=== PATIENT | male | born 1950 | race Asian ===

== ENCOUNTER 2019-09-05 09:00 | Inpatient (IN) | payer OTHER ==
[~2019-09-05] VITALS: Ht 175.3 cm; Wt 86.2 kg
[2019-09-05 10:31] VITALS: BP 134/80
[2019-09-05 10:37] LABS: APPEARANCE,URINE Clear (CLEAR); BASOPHILS % (AUTO) 0.7 % (0.0-5.0); BILIRUBIN,URINE Negative (NEGATIVE); COLOR,URINE Yellow (YELLOW); EOSINOPHILS % (AUTO) 5.1 % (0.0-8.0); GLUCOSE, URINE (UA) Negative (NEGATIVE); HEMATOCRIT 43.1 % (42-54); KETONES,URINE Negative (NEGATIVE); LEUKOCYTE ESTERASE ,URINE Negative (NEGATIVE); LYMPHOCYTES % (AUTO) 29.1 % (21.0-51.0); MEAN CORPUSCULAR HEMOGLOBIN 29.3 pg (27.0-33.0); MEAN CORPUSCULAR HGB CONC 33.7 g/dL (32.0-36.0); MEAN CORPUSCULAR VOLUME 87.1 fL (79-99); MONOCYTES % (AUTO) 7.9 % (3.0-13.0); NEUTROPHILS % (AUTO) 57.2 % (40.0-77.0); NITRATE,URINE Negative (NEGATIVE); OCCULT BLOOD,URINE Negative (NEGATIVE); PLATELET COUNT (AUTO) 206 K/uL (130-400); PROTEIN,URINE Negative (NEGATIVE); RED BLOOD CELL COUNT(AUTO) 4.95 MIL/uL (4.50-6.20); RED CELL DISTRIBUTION WIDTH 13.7 % (11.0-15.5); WHITE BLOOD COUNT (AUTO) 5.5 K/uL (4.8-10.8)
[2019-09-05] MEDS ORDERED: FLUT1AER IH (10:41)
[2019-09-05 10:45] LABS: POTASSIUM 3.8 mmol/L (3.5-5.1)
[2019-09-05 10:48] LABS: INR 0.95 (0.85-1.15); PARTIAL THROMBOPLASTIN TIME 28.4 SEC (26.3-35.5)
[2019-09-07] VITALS (23 sets, daily range): BP systolic 111–152; BP diastolic 50–94
[2019-09-07] MEDS ORDERED: SODIUM CHLORIDE 0.9% 500ML 500 ML IV SCH (05:00)
[2019-09-07] MEDS ORDERED: SODIUM CHLORIDE 0.9% 1000ML 1,000 ML IV ONE (06:08)
[2019-09-07] MEDS ORDERED: IODIXANOL 320 MG/ML 100 ML VIAL ONE (06:46)
[2019-09-07] MEDS ORDERED: CEFAZOLIN SODIUM 1 GM VIAL ONE (06:46)
[2019-09-07] MEDS ORDERED: HEPARIN SODIUM 1000UNIT/ML 10ML VIAL ONE ×2 (06:46→08:28)
[2019-09-07] MEDS ORDERED: LIDOCAINE PF 2% 5ML ABBOJECT ONE (07:12)
[2019-09-07] MEDS ORDERED: PROPOFOL 10 MG/ML 20ML VIAL IV ONE (07:13)
[2019-09-07] MEDS ORDERED: ROCURONIUM BROMIDE 10MG/1ML 5ML VL ONE ×2 (07:13→08:01)
[2019-09-07] MEDS ORDERED: FENTANYL CITRATE PF 50 MCG/1 ML 2ML VIAL ONE (07:13)
[2019-09-07] MEDS ORDERED: MIDAZOLAM HCL 1 MG/ML 2ML VIAL ONE (07:17)
[2019-09-07] MEDS ORDERED: NOREPINEPHRINE BITARTRATE 1 MG/1 ML ML IV ONE (07:18)
[2019-09-07] MEDS ORDERED: METHYLPREDNISOLONE SOD SUCC 125MG/2ML VIAL ONE (07:57)
[2019-09-07] MEDS ORDERED: DiphenhydrAMINE HCL 50 MG/ML VIAL ONE (07:57)
[2019-09-07] MEDS ORDERED: NEOSTIGMINE 5MG/5ML SYR IV ONE (09:00)
[2019-09-07] MEDS ORDERED: GLYCOPYRROLATE 0.2 MG/ML 5 ML VIAL ONE (09:00)
[2019-09-07] MEDS ORDERED: LABETALOL HCL 5 MG/ML 20ML VIAL IV ONE (09:09)
[2019-09-07] MEDS ORDERED: ACETAMINOPHEN-CODEINE 300/30MG TAB PO PRN (09:15)
[2019-09-07] MEDS ORDERED: TEMAZEPAM 30 MG CAP PO PRN (09:15)
[2019-09-07] MEDS: SODIUM CHLORIDE 0.9% 1000ML 1,000 ML IV SCH ×2 (10:15→19:49)
[2019-09-07] MEDS: ALBUTEROL SULFATE 0.083% 2.5 MG/3 ML INH IH SCH ×3 (11:06→23:21)
[2019-09-07] MEDS ORDERED: HYDRALAZINE HCL 20 MG/ML VIAL IV PRN (11:15)
[2019-09-07] MEDS: ASPIRIN 81 MG EC TAB PO SCH (13:36)
[2019-09-07] MEDS: CEFAZOLIN SODIUM 1 GM VIAL IVP SCH ×2 (15:06→23:41)
[2019-09-07] MEDS: BUDESONIDE 0.5 MG/2 ML INH IH SCH (18:23)
[2019-09-08] VITALS (11 sets, daily range): BP systolic 101–131; BP diastolic 72–88
[2019-09-08 04:05] LABS: HEMATOCRIT 41.2 % (42-54); MEAN CORPUSCULAR HEMOGLOBIN 29.2 pg (27.0-33.0); MEAN CORPUSCULAR HGB CONC 33.3 g/dL (32.0-36.0); MEAN CORPUSCULAR VOLUME 87.6 fL (79-99); PLATELET COUNT (AUTO) 194 K/uL (130-400); RED BLOOD CELL COUNT(AUTO) 4.71 MIL/uL (4.50-6.20); RED CELL DISTRIBUTION WIDTH 13.6 % (11.0-15.5); WHITE BLOOD COUNT (AUTO) 15.7 K/uL (4.8-10.8)
[2019-09-08 04:41] LABS: CREATININE 1.1 mg/dL (0.5-1.5); POTASSIUM 3.9 mmol/L (3.5-5.1)
[2019-09-08] MEDS: SODIUM CHLORIDE 0.9% 1000ML 1,000 ML IV SCH (05:09)
[2019-09-08] MEDS ORDERED: SODIUM CHLORIDE 0.9% 1000ML 1,000 ML IV SCH (06:00)
[2019-09-08] MEDS: BUDESONIDE 0.5 MG/2 ML INH IH SCH (06:40)
[2019-09-08] MEDS: ALBUTEROL SULFATE 0.083% 2.5 MG/3 ML INH IH SCH (06:40)
--- NOTE | 2019-09-08 07:05 | NUR ---
TYLOR VALDEZ (COVERING FOR DR GOMES), STATED PATIENT MAY BE DISCHARGED WHEN CLEARED PER VENDING MACHINE REPAIRER.
[2019-09-08] MEDS: ASPIRIN 81 MG EC TAB PO SCH (08:02)
[2019-09-08] MEDS ORDERED: NEOMY SULF/BACITRA/POLYMYXIN B 1 EACH PACKET TP SCH (09:45)
--- NOTE | 2019-09-08 10:05 | NUR ---
JUHI CATALAN,TEENAGE BABYSITTER AT BEDSIDE, NEW ORDERS GIVEN
[2019-09-08] MEDS ORDERED: ASPI-1197 PO (10:36)
--- NOTE | 2019-09-08 11:00 | NUR ---
SL DISCONTINUED X2, CATHETERS INTACT, APPLIED PRESSURE TO SITES, COVERED WITH 2X2 GAUZES, AND SECURED WITH TAPE. ORAL AND WRITTEN DISCHARGE INSTRUCTIONS GIVEN, PATIENT'S AT BEDSIDE, BOTH VERBALIZING UNDERSTANDING.
--- NOTE | 2019-09-08 11:14 | NUR ---
DISCHARGED OFF FLOOR VIA WHEELCHAIR, ACCOMPANIED PER [place],PCP
--- NOTE | 2019-09-08 16:55 | NUR ---
DC PLAN VISITED WITH PATIENT. PATIENT DISCHARGED HOME NO NEEDS VERBALIZED BY NURSING STAFF. Addendum: 09/08/19 at 1656 by JABIER RICHARD RN CM Amended: Links added.
== END 2019-09-08 11:14 | disposition home or self-care (01) | DRG 269 ==
LOC: EDSTATUS 09:00 → DAHIP 09-07 05:30 → 2BH 09-07 09:14
PROVIDERS: ADMIT Internal Medicine Critical Care Medicine; ATTEND Internal Medicine Critical Care Medicine
PROC: B4101ZZ Fluoroscopy of Abdominal Aorta using Low Osmolar Contrast (ICD-10-PCS; principal; 2019-09-07)
PROC: 04V03DZ Restriction of Abdominal Aorta with Intraluminal Device, Percutaneous Approach (ICD-10-PCS; 2019-09-07)
DX: I71.4 Abdominal aortic aneurysm, without rupture (principal); J44.9 Chronic obstructive pulmonary disease, unspecified; I10 Essential (primary) hypertension; Z79.51 Long term (current) use of inhaled steroids; Z87.891 Personal history of nicotine dependence; Z79.82 Long term (current) use of aspirin; Z88.8 Allergy status to other drugs, medicaments and biological substances
CPT/HCPCS: 34705; 34713; 36415; 71045; 80048; 81003; 85025; 85027; 85610; 85730; 86850; 86900; 86901; 86922; 93005; 94640; 94664; A4344; A4606; C1725; C1760; C1769; C1887; C1894; G0378; J0690; J1200; J1644; J2001; J2250; J2704; J2710; J2930; J3010; J3490; J7030; Q9967

== ENCOUNTER → 2021-04-10 | Outpatient (CLI) | payer OTHER ==
[~2021-04-10] MED LIST: ASPI-1197 PO; FLUT1AER IH; IOHEXOL 350 MG/ML 100ML INFUS..BTL IV ONE
== END | disposition home or self-care (01) ==
LOC: RAH 08:49
PROVIDERS: ATTEND Internal Medicine Cardiovascular Disease
DX: I71.4 Abdominal aortic aneurysm, without rupture (principal); I72.3 Aneurysm of iliac artery
CPT/HCPCS: 36415; 74174; 82565; 84520; Q9967

== ENCOUNTER → 2023-04-02 | Outpatient (CLI) | payer OTHER ==
[~2023-04-02] MED LIST changes: -IOHEXOL 350 MG/ML 100ML INFUS..BTL IV ONE
== END | disposition home or self-care (01) ==
LOC: SHCH 07:35
PROVIDERS: ATTEND Internal Medicine Cardiovascular Disease
DX: I71.40 Abdominal aortic aneurysm, without rupture, unspecified (principal); I74.5 Embolism and thrombosis of iliac artery; I74.10 Embolism and thrombosis of unspecified parts of aorta
CPT/HCPCS: 93978

== ENCOUNTER → 2024-07-21 | Outpatient (CLI) | payer OTHER | END | disposition home or self-care (01) | LOC: SHCH 07:31 | PROVIDERS: ATTEND Internal Medicine Cardiovascular Disease | DX: I73.9 Peripheral vascular disease, unspecified (principal) | CPT/HCPCS: 93978 ==

== ENCOUNTER → 2025-01-31 | Outpatient (CLI) | payer OTHER ==
[2025-01-31 16:30] LABS: POTASSIUM 4.6 mmol/L (3.5-5.1)
== END | disposition home or self-care (01) ==
LOC: LAB 11:58
PROVIDERS: ATTEND Internal Medicine Cardiovascular Disease
DX: I71.40 Abdominal aortic aneurysm, without rupture, unspecified (principal)
CPT/HCPCS: 36415; 80048

== ENCOUNTER → 2025-02-09 | Outpatient (CLI) | payer OTHER ==
[~2025-02-09] MED LIST changes: +IOHEXOL 350 MG/ML 100ML INFUS..BTL IV ONE
--- NOTE | 2025-02-09 17:47 | HMCIMG ---
CT ANGIO ABD/PEL PRE AAA 3MM HISTORY: Abdominal aortic aneurysm COMPARISON: None TECHNIQUE: CT angiography of the abdomen and pelvis was obtained using angiographic technique with maximum intensity projection reconstruction images. Patient was not given contrast through intravenous route. Oral contrast was not given. FINDINGS: No pleural effusion is seen bilaterally. There are mild interstitial fibrosis. There is no evidence of parenchymal disease or pulmonary nodule of the visualized lower lungs. Degenerative changes of the thoracolumbar spine are present. The heart is not enlarged. Gallstone is seen in the nondistended gallbladder. There is left renal cyst measuring 2.7 cm. There is right renal cyst measuring 1.5 cm. The liver, spleen, adrenal glands and pancreas are unremarkable. There is no evidence of hydronephrosis bilaterally. No evidence of renal stone is seen. Fecal material is seen in the colon. There are normal size retroperitoneal and mesenteric lymph nodes. No ascites is seen. Atherosclerotic changes are present. There is diffuse atherosclerotic disease. There is infrarenal abdominal aortic aneurysm measuring 3.8 x 3.9 cm. Abdominal aortic aneurysm repair changes are seen with aortobilateral iliac stent graft. No extravasation of contrast is seen. There is mild diverticulosis. The celiac, superior mesenteric and bilateral renal arteries are grossly patent. The visualized portion of the iliac and femoral arterial systems are also grossly patent. Pelvic sidewalls are symmetric bilaterally. Bladder is well distended without wall thickening. IMPRESSION: 1. Abdominal aortic aneurysm repair changes with aortobilateral iliac stent graft. No extravasation of contrast or leakage is seen. CT was performed with one or more following dose reduction techniques: automated exposure control, adjustment of the mA and kv according to patient's size, or use of a iterative reconstruction technique.
== END | disposition home or self-care (01) ==
LOC: RAH 10:24
PROVIDERS: ATTEND Internal Medicine Cardiovascular Disease
DX: K57.30 Diverticulosis of large intestine without perforation or abscess without bleeding (principal); K80.20 Calculus of gallbladder without cholecystitis without obstruction; N28.1 Cyst of kidney, acquired; I71.40 Abdominal aortic aneurysm, without rupture, unspecified; J84.10 Pulmonary fibrosis, unspecified; M47.815 Spondylosis without myelopathy or radiculopathy, thoracolumbar region; I70.0 Atherosclerosis of aorta
CPT/HCPCS: 74174; Q9967

== ENCOUNTER → 2025-06-22 | Outpatient (CLI) | payer OTHER ==
--- NOTE | 2025-06-23 14:22 | HMCIMG ---
EXAMINATION: CT ANGIOGRAM OF ABDOMEN AND PELVIS . CLINICAL HISTORY: Abdominal aortic aneurysm, without rupture. COMPARISON: Prior CTA on 02/09/2025 TECHNIQUE: MDCT angiogram of the abdominal aortic vessels was performed after administration of intravenous contrast. FINDINGS: There are atheromatous wall calcification of the aorta and iliac arteries. There is aneurysm of the infrarenal segment of the abdominal aorta and right internal iliac artery with patent endovascular graft and stent in situ. There is a small endoleak (likely type II) on delayed images (for example image 25 series 17). There is no dissection. The celiac and superior mesenteric arteries, are normal in caliber. There is no stenosis or occlusion. Bilateral renal arteries are normal in caliber. There is no stenosis or occlusion. The inferior mesenteric arteries are normal in caliber. Bifurcation morphology is normal. There is no stenosis or occlusion. The bilateral common iliac arteries are normal in caliber. No stenosis or occlusion. 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 Within the abdomen and pelvis, hepatic steatosis; bilateral renal cortical cysts, the largest on the left measures 3.6 x 3.0 x 3.0 cm; gallbladder, pancreas, spleen, adrenal glands are within normal limits; bowel loops are normal in caliber without evidence of obstruction, ileus, or bowel wall thickening, and the appendix is normal; and urinary bladder, prostate, and seminal vesicles appear normal in caliber. There is multilevel moderate degenerative spondylosis of the spine. Included chest reveals emphysematous changes in both lungs. [place] in the right lower lobe. Subpleural interseptal thickening in both lungs ??? early interstitial lung disease. IMPRESSION: Aneurysm of the infrarenal segment of the abdominal aorta and right internal iliac artery with endovascular graft and stent in situ. Small endoleak (likely type II) on delayed images. No dissection. 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 /[place]
== END | disposition home or self-care (01) ==
LOC: RAH 08:00
PROVIDERS: ATTEND Internal Medicine Cardiovascular Disease
DX: I71.40 Abdominal aortic aneurysm, without rupture, unspecified (principal); I70.0 Atherosclerosis of aorta; K76.0 Fatty (change of) liver, not elsewhere classified; N28.1 Cyst of kidney, acquired; J43.9 Emphysema, unspecified; M47.817 Spondylosis without myelopathy or radiculopathy, lumbosacral region
CPT/HCPCS: 74174; Q9967 ×2